=== PATIENT | female | born 1970 | race Asian ===

== ENCOUNTER 2016-11-17 00:15 | Emergency (ER) | payer OTHER ==
[~2016-11-17] VITALS: Ht 152.4 cm; Wt 64.9 kg
[2016-11-17 00:31] VITALS: TEMP 36.6; Ht 152.4 cm; Wt 64.9 kg
[2016-11-17 01:29] LABS: BASO % 0.4 %; BASO ABS # 0.02 K/uL (0-0.2); COMPLETE YES; EOS % 1.1 %; HEMATOCRIT 38.1 % (37-47); LYMPH % 26.4 %; LYMPH ABS # 1.48 K/uL (1.2-3.4); MEAN CELL VOLUME 82.3 fL (80-100); MEAN CORPUSCULAR HEMOGLOBIN 29.2 pg (25-34); MEAN CORPUSCULAR HGB CONC 35.4 g/dl (32-36); MEAN PLATELET VOLUME 10.3 fL (7.4-10.4); MONO % 7.7 %; NEUT % 64.4 %; PLATELET COUNT 224 K/uL (130-400); RED BLOOD COUNT 4.63 M/uL (4.2-5.4)
[2016-11-17 02:03] LABS: BUN/CREATININE RATIO 9.6 (10-20); CALCIUM 8.2 mg/dl (8.5-10.1); CREATININE 0.76 mg/dl (0.60-1.20); MAGNESIUM 2.3 mg/dl (1.8-2.4); POTASSIUM 3.4 mmol/L (3.5-5.1)
[2016-11-17 02:06] LABS: ALB/GLOB RATIO 0.8 (0.9-2)
[2016-11-17 03:41] LABS: URINE APPEARANCE CLOUDY (CLEAR); URINE BILIRUBIN NEG (NEG); URINE COLOR YELLOW; URINE EPITHELIAL CELL AUTO 20-30 /lpf (0-5); URINE NITRITE NEG (NEG); URINE SPECIFIC GRAVITY 1.016 (1.000-1.030); UROBILINOGEN NEG (NEG); ZZUR CULT IF INDIC CLEAN CATCH NO
[2016-11-17 03:43] LABS: MANUAL MICROSCOPIC REQUIRED? NO; REVIEW REQ? NO
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
[2016-11-17 05:20] VITALS: BP 118/73; PULSE 71; O2SAT 99
--- NOTE | 2016-11-17 05:25 | History and Physical ---
History & Physical Date & Time of Service: Nov 17, 2016 at 05:13 Chief Complaint: Gallbladder Pain Primary Care Physician: No Doctor, Assigned History of Present Illness Source: patient, family Celi Villarreal is a 46 year old female who presents to ER for 3 weeks history RUQ pain with nausea and vomiting. the pain is located at RUQ, pt denies fever, no diarrhea, no chest pain, now pt said she has no abdominal pain. Family History pt's mother had gastric cancer, Social History Smoking Status: Never Smoker Smokeless Tobacco Use: No Alcohol Use: none Drug Use: none Allergies Coded Allergies: No Known Allergies (Unverified , 11/17/16) Home Medications No Active Prescriptions or Reported Meds Review of Systems Constitutional: No chills, No fatigue, No fever, No problem reported, No sweats , No weakness, No weight loss Eyes: No diplopia, No discharge, No eye pain, No problem reported, No redness, No worsening of vision ENT: No dental problems, No hearing loss, No nasal symptoms, No problem reported, No sore throat, No tinnitus, No trouble swallowing, No unusual epistaxis Respiratory: No cough, No dyspnea at rest, No dyspnea on exertion, No hemoptysis, No problem reported, No shortness of breath, No sputum, No wheezing Cardiovascular: No PND, No chest pain, No claudication, No edema, No orthopnea , No palpitations, No problem reported Abdomen: + nausea, + pain, + vomiting Musculoskeletal: No calf pain, No joint pain, No muscle pain, No problem reported, No swelling Genitourinary - Female: No dysmenorrhea, No dysuria, No hematuria, No menorrhagia, No metrorrhagia, No , No problem reported, No rash, No urinary frequency, No urinary incontinence, No urinary retention, No urinary urgency, No vaginal bleeding, No vaginal discharge, No vaginal itching, No vulvodynia Neurologic: No balance problems, No memory loss, No numbness/tingling, No paralysis, No problem reported, No vertigo, No weakness Psychiatric: No anhedonism, No anxiety, No depression symptoms, No insomnia, No problem reported, No substance abuse Endocrine: No excessive thirst, No excessive urination, No fatigue, No problem reported Physical Exam Vital Signs Date Time Temp Pulse Resp B/P Pulse Ox O2 Delivery O2 Flow Rate FiO2 11/17/16 04:58 71 16 99 Room Air 11/17/16 02:12 60 16 112/77 100 Room Air 11/17/16 00:31 36.6 62 18 123/76 100 Room Air General Appearance: WD/WN Head: normocephalic Eyes: normal inspection, PERRL ENT: normal ENT inspection, hearing grossly normal Neck: supple, no adenopathy Respiratory/Chest: chest non-tender, lungs clear Cardiovascular: regular rate, rhythm, no edema, no gallop, no JVD Abdomen/GI: normal bowel sounds, non tender, soft, no organomegaly Back: normal inspection Extremities/Musculoskelatal: normal inspection, no calf tenderness, normal capillary refill Neurologic/Psych: wafer polisher II-XII nml as tested, no motor/sensory deficits Skin: normal color, warm/dry Diagnostics Laboratory Results Results Past 24 Hours Test 11/17/16 00:00 11/17/16 01:00 Range/Units Urine Color YELLOW Urine Appearance CLOUDY CLEAR Urine pH 5.0 4.5-7.5 Urine Specific [place] 1.016 1.000-1.030 Urine Protein NEG NEG Urine Glucose (UA) NEG NEG Urine Ketones NEG NEG Urine Occult Blood 1+ NEG Urine Nitrite NEG NEG Urine Bilirubin NEG NEG Urine Urobilinogen NEG NEG Urine Leukocyte Esterase NEG NEG Urine WBC (Auto) 1-5 0-5 /hpf Urine RBC (Auto) 0-4 0-4 /hpf Urine Hyaline Casts (Auto) 1-5 0-5 /lpf Urine Epithelial Cells (Auto) 20-30 0-5 /lpf Urine Bacteria (Auto) NEG NEG Urine Test NEG NEG White Blood Count 5.60 4.8-10.8 K/uL Red Blood Count 4.63 4.2-5.4 M/uL Hemoglobin 13.5 12.0-16.0 g/dL Hematocrit 38.1 37-47 % Mean Corpuscular Volume 82.3 80-100 fL Mean Corpuscular Hemoglobin 29.2 25-34 pg Mean Corpuscular Hemoglobin Concent 35.4 32-36 g/dl Platelet Count 224 130-400 K/uL Mean Platelet Volume 10.3 7.4-10.4 fL Neutrophils (%) (Auto) 64.4 % Lymphocytes (%) (Auto) 26.4 % Monocytes (%) (Auto) 7.7 % Eosinophils (%) (Auto) 1.1 % Basophils (%) (Auto) 0.4 % Neutrophils # (Auto) 3.61 1.4-6.5 K/uL Lymphocytes # (Auto) 1.48 1.2-3.4 K/uL Monocytes # (Auto) 0.43 0.11-0.59 K/uL Eosinophils # (Auto) 0.06 0-0.5 K/uL Basophils # (Auto) 0.02 0-0.2 K/uL RDW Standard Deviation 40.1 36.4-46.3 fL RDW Coefficient of Variation 13.2 11.5-14.5 % Immature Granulocyte % (Auto) 0.0 % Immature Granulocyte # (Auto) 0.00 0.00-0.02 K/uL Sodium Level 143 136-145 mmol/L Potassium Level 3.4 3.5-5.1 mmol/L Chloride Level 108 98-107 mmol/L Carbon Dioxide Level 25 21-32 mmol/L Anion Gap 10.0 3-11 mmol/L Blood Urea Nitrogen 7 7-18 mg/dl Creatinine 0.76 0.60-1.20 mg/dl Est Creatinine Clear Calc Drug Dose 76.9 ml/min Estimated GFR () 108.3 Estimated GFR (Non- 93.4 BUN/Creatinine Ratio 9.6 10-20 Random Glucose 94 70-99 mg/dl Calcium Level 8.2 8.5-10.1 mg/dl Magnesium Level 2.3 1.8-2.4 mg/dl Total Bilirubin 0.2 0.2-1 mg/dl Aspartate Amino Transf (AST/SGOT) 8 15-37 U/L Alanine Aminotransferase (ALT/SGPT) 16 12-78 U/L Alkaline Phosphatase 52 45-117 U/L Total Protein 8.0 6.4-8.2 gm/dl Albumin 3.6 3.4-5.0 gm/dl Globulin 4.4 2.5-4.0 gm/dl Albumin/Globulin Ratio 0.8 0.9-2 Lipase 193 73-393 U/L Diagnostic Radiology U/S- cholelithiasis Impression Assessment and Plan IMP cholelithiasis, chronic cholecystitis Plan, pt has no abdominal pain now, pt wants to go home now, pt will have laparoscopic cholecystectomy, possible open or cholangiogram on . D/W benefits, risks and alternatives of the procedure, the risks- infection, bleeding, injury CBD, bowel, DVT, NC, stroke, incisional hernia, may need ERCP, , pt and her family member understood, they agree with the plan , pt also need EGD sometime, but pt wants to do cholecystectomy first. ASA Classification: ASA Class II
--- NOTE | 2016-11-17 08:36 | DIAGNOSTIC IMAGING REPORT ---
ULTRASOUND RIGHT UPPER QUADRANT ABDOMEN CLINICAL HISTORY: Right upper quadrant abdominal pain. COMPARISON STUDY: No priors. TECHNIQUE: Real-time, grayscale, and color flow sonography of the right upper quadrant of the abdomen was performed. Images are reviewed in the transverse and longitudinal planes. FINDINGS: Liver: The liver is normal in size and echotexture. There is no intrahepatic biliary ductal dilatation. The main portal vein is patent. Gallbladder: There is a large calcified shadowing gallstone which measures at least 2.2 cm. There is no gallbladder wall thickening or pericholecystic fluid. A sonographic Jennings's sign is reportedly absent. The common bile duct measures up to 0.3 cm in diameter. Pancreas: Visualized portions of the pancreatic head and body are normal in appearance. Right kidney: Survey images of the right kidney demonstrate normal size and echotexture. There is no hydronephrosis. A 12 mm cyst is noted in the right upper pole. Ascites: None. IMPRESSION: Cholelithiasis without sonographic evidence of acute cholecystitis. Electronically signed by: Saroj Serna M.D. 11/17/2016 8:34 AM Dictated Date/Time: 11/17/2016 8:33 AM
[2016-11-19] MEDS ORDERED: OXYC-57 PO (12:52)
== END 2016-11-17 05:21 | disposition home or self-care (01) ==
LOC: EDBD 00:19 → C.EDB 00:19 → EDSEX 00:19 → C.EDB 05:21
DX: K80.10 Calculus of gallbladder with chronic cholecystitis without obstruction (principal)

== ENCOUNTER 2016-11-19 08:47 | Day surgery (SDC) | payer OTHER ==
[2016-11-18 10:54] VITALS: BMI 27.0
[~2016-11-19] VITALS: Ht 152.4 cm; Wt 62.7 kg
[~2016-11-19 08:47] MED LIST: CEFAZOLIN 2000 MG/60 ML D5W IV SCH; LACTATED RINGER'S 1000ML 1,000 ML IV SCH
[2016-11-19] MEDS ORDERED: FENTANYL CITRATE INJ 50 MCG/1 ML 2 ML VIAL IV PRN (09:00)
[2016-11-19] MEDS ORDERED: ONDANSETRON INJ 2 MG/ML 2 ML VIAL IV PRN ×2 (09:00→13:00)
[2016-11-19] MEDS ORDERED: EpHEDrine SULFATE INJ 50 MG/ML AMP IV PRN (09:00)
[2016-11-19] MEDS ORDERED: ATROPINE SULFATE 0.1 MG/ML 5ML SYR IV PRN (09:00)
[2016-11-19 09:28] VITALS: BP 110/63; PULSE 64; TEMP 37.3; O2SAT 100; Ht 152.4 cm; Wt 62.7 kg
[2016-11-19] MEDS ORDERED: SCOPOLAMINE 1.5 MG TDSY TD ONE ×2 (09:59→10:00)
[2016-11-19] MEDS ORDERED: ROCURONIUM BROMIDE 10 MG/ML 5 ML VIAL ONE (10:20)
[2016-11-19] MEDS ORDERED: ONDANSETRON INJ 2 MG/ML 2 ML VIAL ONE (10:20)
[2016-11-19] MEDS ORDERED: LIDOCAINE HCL 2% 2 ML VIAL (20MG/ML) ONE (10:20)
[2016-11-19] MEDS ORDERED: FENTANYL CITRATE INJ 50 MCG/1 ML 2 ML VIAL ONE ×2 (10:20)
[2016-11-19] MEDS ORDERED: PROPOFOL IV EMULSION 10 MG/ML 20 ML VIAL IV ONE (10:20)
[2016-11-19] MEDS ORDERED: DEXAMETHASONE SOD INJ 4 MG/ML VIAL ONE (10:20)
[2016-11-19] MEDS ORDERED: MIDAZOLAM HCL 1 MG/ML 2ML VIAL ONE (10:20)
--- NOTE | 2016-11-19 10:42 | History & Physical Bridge Note ---
H&P Re-Evaluation Bridge Note: I have examined the patient, reviewed the History & Physical and in the interval since the performance of the History & Physical I have noted the following changes of clinical significance: No changes noted.
[2016-11-19] MEDS ORDERED: CEFAZOLIN IV 2,000 MG in DEXTROSE 5% 50ML 50 ML IV SCH (10:45)
[2016-11-19] MEDS ORDERED: SURGICEL ABSORB HEMOSTAT 2IN X 14IN TOP ONE (11:51)
[2016-11-19] MEDS ORDERED: BACITRACIN ZINC OINT TOP ONE (11:51)
[2016-11-19] MEDS ORDERED: GLYCOPYRROLATE INJ 0.2 MG/ML VIAL ONE (12:24)
[2016-11-19] MEDS ORDERED: KETOROLAC TROMETHAMINE 30 MG/ML VIAL ONE (12:24)
[2016-11-19] MEDS ORDERED: NEOSTIGMINE METHYLSULFATE 5 MG/5 ML SYR ONE (12:24)
[2016-11-19] MEDS ORDERED: MIX: LIDOCAINE 1% + MARCAINE 0.5% (50:50) INJ ONE ×2 (12:29→12:34)
--- NOTE | 2016-11-19 12:51 | [facility] Post Operative Brief Note ---
Immediate Operative Summary Operative Date Nov 19, 2016. Pre-Operative Diagnosis Chronic cholecystitis, cholelithasis Post-Operative Diagnosis Same Procedure(s) Performed Laparoscopic cholecystectomy Surgeon Dr Castillo Copier Technician Surgeon(s) None Estimated Blood Loss 20ml Findings chronic cholecystitis, cholelithiasis Specimens A. Gallbladder Drains none Anesthesia general Complication(s) None Disposition Recovery Room / PACU
[2016-11-19] MEDS ORDERED: OXYC-57 PO (12:52)
--- NOTE | 2016-11-19 12:55 | Discharge Instructions ---
Discharge Instructions Visit Reason for Visit: Cholelithiasis Discharge Goals Goal(s): Decrease discomfort, Improve function Activity Recommendations Activity Limitations: per Instructions/Follow-up section Lifting Limitations: no more than 25 pounds Exercise/Sports Limitations: gradually increase as tolerated May Resume Sexual Activity: when tolerated Shower/Bathe: may shower/bathe in 3 days Driving or Machine Use: resume 3 days after discharge Anesthesia . Post Anesthesia Instructions: If you have had General Anesthesia or IV Sedation: * Do not drive today. * Resume driving when surgeon permits. * Do not make important decisions or sign legal documents today. * Call surgeon for: 1. Temperature elevations greater than 101 degrees F. 2. Uncontrollable pain. 3. Excessive bleeding. 4. Persistent nausea and vomiting. 5. Medication intolerance (nausea, vomiting or rash). * For nausea and vomiting use only clear liquids such as: tea, soda, bouillon until nausea subsides, then gradually increase diet as tolerated. * If you have any concerns or questions, call your surgeon's office. If physician is unavailable and it is an emergency, call 911 or go to the nearest emergency room. . Instructions / Follow-Up Instructions / Follow-Up keep all dressing on for 4 days, she can take a shower on 11/23/2016, no driving while taking pain medicine, follow up 1 week, Diet Recommendations Recommended Home Diet: resume previous diet Procedures Procedures Performed: Laparoscopic cholecystectomy Pending Studies Studies pending at discharge: no Medical Emergencies . Who to Call and When: Medical Emergencies: If at any time you feel your situation is an emergency, please call 911 immediately. . Non-Emergent Contact Non-Emergency issues call your: Primary Care Provider Call Non-Emergent contact if: you have a fever, temperature is above 100.5, your pain is not controlled, your pain is worsening, wound has increased drainage, wound has increased redness . . "Provider Documentation" section prepared by Pinky Castillo.
[2016-11-19] MEDS ORDERED: D5W AND 1/2NSS + 20MEQ KCL 1,000 ML IV SCH (12:57)
[2016-11-19] MEDS ORDERED: HYDROmorphone INJ 0.5 MG/0.5 ML SYR IV PRN (13:00)
[2016-11-19 13:44] VITALS: BP 110/73; PULSE 58; TEMP 36.5; O2SAT 100
--- NOTE | 2016-11-19 13:47 | Anesthesiology Progress Note ---
Anesthesia Post Op Note Date & Time Nov 19, 2016 at 13:47 Vital Signs Pain Intensity: 0 Vital Signs Past 12 Hours Date Time Temp Pulse Resp B/P Pulse Ox O2 Delivery O2 Flow Rate FiO2 11/19/16 13:34 36.3 58 20 111/70 100 Mask 2 11/19/16 13:25 60 20 110/72 100 Mask 2 11/19/16 13:15 59 20 112/71 100 Mask 2 11/19/16 13:05 61 20 112/71 100 Mask 8 11/19/16 12:55 63 20 107/67 100 Mask 8 11/19/16 12:52 36.6 62 14 108/69 100 Mask 8 11/19/16 09:28 37.3 64 20 110/63 100 Room Air Notes Mental Status: alert / awake / arousable, participated in evaluation Pt Amnestic to Procedure: Yes Nausea / Vomiting: adequately controlled Pain: adequately controlled Airway Patency, RR, SpO2: stable & adequate BP & HR: stable & adequate Hydration State: stable & adequate Anesthetic Complications: no major complications apparent
[2016-11-19 14:15] VITALS: BP 113/76; PULSE 62; O2SAT 100
[2016-11-19 14:45] VITALS: BP 121/73; PULSE 64; TEMP 36.8; O2SAT 99
[2016-11-19] MEDS: OXYCODONE/ACETAMINOPHEN 5-325 TAB PO PRN ×2 (14:55→15:57)
[2016-11-19 15:45] VITALS: BP 109/73; PULSE 66; TEMP 36.7; O2SAT 98
[2016-11-19] MEDS ORDERED: NURSING VERBAL MED ORDER ONE (16:00)
--- NOTE | 2016-11-19 16:04 | OPERATIVE REPORT ---
DATE OF OPERATION: 11/19/2016 PREOPERATIVE DIAGNOSIS: Chronic cholecystitis, cholelithiasis. POSTOPERATIVE DIAGNOSIS: Same. PROCEDURE: Laparoscopic cholecystectomy. SURGEON: Pinky Castillo M.D. ANESTHESIA: General. ESTIMATED BLOOD LOSS: About 20 mL. IV FLUIDS: 800 mL. FINDINGS: Chronic cholecystitis, cholelithiasis. COMPLICATIONS: None. INDICATIONS FOR THE PROCEDURE: This is a 46-year-old female who presented to the ED last weekend with right upper quadrant pain. The patient had ultrasound showed cholecystitis with gallstone and the patient was sent home and was scheduled laparoscopic cholecystectomy, possible open, possible cholangiogram. I did talk to the patient and patient's about the benefit and risk alternate procedure. I indicated the risks may include but not limited such as bleeding, infection, injury to common bile duct, injury to bowel, incisional hernia, may need ERCP, even . The patient understands and she signed informed consent and I answered all questions. OPERATION AND FINDINGS: DETAILS OF PROCEDURE: We brought the patient to the OR, put the patient in the supine position. The patient received SCD on bilateral legs to prevent DVT. Also, the patient received 2 grams Ancef IV for prophylactic antibiotic. The patient received general anesthesia without difficulty. The abdomen was properly draped in routine sterile fashion. After time out injection of local anesthesia by using 1% lidocaine mixed with 0.5% Marcaine around the umbilical. Then I made a small incision just above umbilical, opened fascia and opened peritoneum under direct vision. I put a Yvon trocar in, connected to CO2 to create pneumoperitoneum. Flow rate at 6 liters per minute, pressure not more than 14 mmHg. Once we did a nice pneumoperitoneum, we put a camera in to look around the abdomen shows no more findings on the stomach, small bowel, large bowel, liver and there was some omentum covering the gallbladder, no free fluid on the pelvic area. Then we put another 3.5 mm trocar on the right upper quadrant. Once all trocars were in, I put grasper in to hold the gallbladder on the base of the gallbladder, put direction to the diaphragm and then I put another grasper in to hold the pouch over the gallbladder, put latter to expose the triangle of Calot. The gallbladder wall had significantly thickening, edema, inflammation. Cystic duct was identified and mobilized and then I put two 5 mm metal clips on the proximal cystic artery and 1 on the distal cystic duct, two 5 mm metal clips on the proximal cystic duct, 1 on the distal cystic duct then I used scissor transecting the cystic duct. At this moment I decided to put another 10 mm metal clip on the cystic duct proximally and to secure the cystic duct. Rechecked no active bleeding and then the cystic artery was identified and mobilized. Then I put two 5 mm metal clips on the cystic artery proximally, 1 on the distal and used scissor to transection the cystic artery and then I used Bovie to take down the gallbladder without difficulty. I used the catch bag to take out the gallbladder through the umbilical incision. We inserted Yvon trocar in, connected to CO2 to create pneumoperitoneum, again to look around the abdomen and the liver bed. No active bleeding, no bile leak. We removed all trocars under direct vision. No active bleeding. Then the pneumoperitoneum released and then we closed the umbilical incision, fascial layer by using #1 Vicryl [id number] x2, closed the subcutaneous layer by using 2-0 Vicryl, closed skin by using 4-0 Vicryl, another 3.5 mm trocar site closed skin only by using 4-0 Vicryl. We put the dressing on. The patient tolerated the procedure well. All the instrument, needle and sponge count correct x2 at the end of case. After the procedure, I did talk to the patient and family member and the specimen sent to pathology. I attest to the content of the Intraoperative Record and any orders documented therein. Any exceptio ns are noted below.
== END 2016-11-19 16:15 | disposition home or self-care (01) ==
LOC: C.ACU 08:47
PROVIDERS: ATTEND Surgery
DX: K80.10 Calculus of gallbladder with chronic cholecystitis without obstruction (principal)